=== PATIENT | female | born 1990 | race Two or more races ===

== ENCOUNTER 2019-12-23 21:31 | Emergency (ER) | payer BC, OTHER ==
[~2019-12-23] VITALS: Ht 157.5 cm; Wt 72.6 kg
[2019-12-23 21:34] VITALS: BP 125/94
--- NOTE | 2019-12-23 21:55 | NUR ---
Patient discharged to home in stable condition. Written and verbal after care instructions given. Patient verbalizes understanding of instruction. Pt ambulatory with a steady gait
== END 2019-12-23 21:56 | disposition home or self-care (01) ==
LOC: ER 21:34
DX: J02.8 Acute pharyngitis due to other specified organisms (principal); Z60.2 Problems related to living alone

== ENCOUNTER 2020-03-28 16:32 | Emergency (ER) | payer BC, OTHER ==
[~2020-03-28] VITALS: Ht 157.5 cm; Wt 77.1 kg
[2020-03-28 16:38] VITALS: BP 138/91
--- NOTE | 2020-03-28 17:24 | NUR ---
covid swab sent
== END 2020-03-28 17:26 | disposition home or self-care (01) ==
LOC: ER 16:38
DX: J30.9 Allergic rhinitis, unspecified (principal); Z86.19 Personal history of other infectious and parasitic diseases
CPT/HCPCS: 71045; 99284; U0003